=== PATIENT | female | born 1975 | race Caucasian/White ===

== ENCOUNTER 2018-10-31 15:10 | Emergency (ER) | payer MEDICAID ==
[2018-10-31 17:24] LABS: URINE BLOOD (Dip) POC Trace-intact (NEGATIVE); URINE KETONES (Dip) POC Negative (NEGATIVE); URINE LEUKOCYTE EST (Dip) POC Negative (NEGATIVE); URINE NITRITE (Dip) POC Negative (NEGATIVE); URINE TOTAL PROTEIN POC Negative (NEGATIVE)
[2018-10-31 17:24] LABS: URINE PH (Dip) POC 5.5 (5.0-8.5)
[2018-10-31] MEDS: IBUPROFEN 600 MG TAB PO (17:24)
== END 2018-10-31 18:58 | disposition home or self-care (01) ==
LOC: FTE 15:10
DX: N76.0 Acute vaginitis (principal)
CPT/HCPCS: 76856; 81003; 81025; 99284-25

== ENCOUNTER → 2019-06-17 | Emergency (ER) | payer MEDICAID ==
[2019-06-17 14:11] LABS: URINE BLOOD (Dip) POC Trace-intact (NEGATIVE); URINE GLUCOSE (Dip) POC Negative (NEGATIVE); URINE KETONES (Dip) POC Negative (NEGATIVE); URINE LEUKOCYTE EST (Dip) POC Trace (NEGATIVE); URINE NITRITE (Dip) POC Negative (NEGATIVE); URINE TOTAL PROTEIN POC Negative (NEGATIVE)
== END | disposition home or self-care (01) ==
LOC: FTE 13:40
DX: K59.00 Constipation, unspecified (principal)
CPT/HCPCS: 81003; 81025; 99282

== ENCOUNTER 2019-06-20 14:09 | Emergency (ER) | payer MEDICAID | END 2019-06-20 15:00 | disposition home or self-care (01) | LOC: FTE 14:09 | DX: K59.00 Constipation, unspecified (principal) | CPT/HCPCS: 99282; Z7502 ==